=== PATIENT | female | born 1950 | race Caucasian/White ===

== ENCOUNTER 2023-02-15 10:44 | Emergency (ER) | payer OTHER ==
[2023-02-15 10:55] VITALS: BMI 24.4
[2023-02-15 12:02] LABS: BASO % 0.5 % (0-2.0); EOS % 2.2 % (0-4.5); HEMATOCRIT 31.7 % (32.4-45.2); HEMOGLOBIN 10.8 GM/dL (10.7-15.3); LYMPH % 24.9 % (8-40); MCH 30.8 pg (25.7-33.7); MCHC 34.1 g/dl (32.0-36.0); MEAN CELL VOLUME 90.6 fl (80-96); MEAN PLT VOLUME 9.6 fl (7.5-11.1); MONO % 6.6 % (3.8-10.2); NEUT % 65.8 % (42.8-82.8); PLATELET COUNT 252 10^3/uL (134-434); RBC 3.49 M/mm3 (3.60-5.2); RDW 14.1 % (11.6-15.6)
[2023-02-15 12:03] LABS: INR 1.07 (0.83-1.09); PROTHROMBIN TIME (PATIENT) 12.4 SEC (9.7-13.0)
[2023-02-15 12:19] LABS: ALBUMIN 3.2 g/dl (3.4-5.0); CALCIUM 10.3 mg/dL (8.5-10.1)
[2023-02-15 12:22] LABS: CREATININE 0.7 mg/dL (0.55-1.3)
[2023-02-15 12:24] LABS: BILIRUBIN,TOTAL 0.3 mg/dL (0.2-1); TOT PROT 6.7 g/dl (6.4-8.2)
[2023-02-15 12:27] LABS: BLOOD UREA NITROGEN 39.2 mg/dL (7-18)
[2023-02-15 17:41] VITALS: RESP 20
[2023-02-15 20:11] VITALS: BP 116/67; PULSE 90; TEMP 98.6
== END 2023-02-15 20:14 | disposition home or self-care (01) ==
LOC: JER 10:44
DX: R04.2 Hemoptysis (principal); J47.9 Bronchiectasis, uncomplicated; Z20.822 Contact with and (suspected) exposure to COVID-19
CPT/HCPCS: 0241U-QW; 36415; 71250-TC; 80053; 83880; 85025; 85610; 86850; 86900; 86901; 93005; 93010; 99282-25

== ENCOUNTER 2023-06-13 17:15 | Emergency (ER) | payer OTHER, BC ==
[2023-06-13 18:02] VITALS: PULSE 85; BMI 26.9
[2023-06-14 01:53] VITALS: BP 107/50; RESP 17; TEMP 97
== END 2023-06-14 02:58 | disposition home or self-care (01) ==
LOC: JER 17:15
DX: S09.90XA Unspecified injury of head, initial encounter (principal); C71.9 Malignant neoplasm of brain, unspecified; R51.9 Headache, unspecified; W22.8XXA Striking against or struck by other objects, initial encounter; Y93.89 Activity, other specified; Y92.092 Bedroom in other non-institutional residence as the place of occurrence of the external cause
CPT/HCPCS: 70450-TC; 72125-TC; 99284-25

== ENCOUNTER 2023-09-20 12:37 | Inpatient (IN) | payer OTHER, BC ==
[2023-09-20 13:27] LABS: BASO % 0.5 % (0-2.0); EOS % 0.5 % (0-4.5); HEMATOCRIT 34.8 % (32.4-45.2); HEMOGLOBIN 11.4 GM/dL (10.7-15.3); LYMPH % 16.9 % (8-40); MCH 29.4 pg (25.7-33.7); MCHC 32.7 g/dl (32.0-36.0); MONO % 6.8 % (3.8-10.2); NEUT % 75.3 % (42.8-82.8); PLATELET COUNT 353 10^3/uL (134-434); RBC 3.86 M/mm3 (3.60-5.2); RDW 14.6 % (11.6-15.6); WHITE BLOOD COUNT 11.7 K/mm3 (4.0-10.0)
[2023-09-20 13:38] LABS: INR 1.05 (0.83-1.09); PROTHROMBIN TIME (PATIENT) 12.2 SEC (9.7-13.0)
[2023-09-20 13:41] LABS: ACTIVATED PTT 26.8 SECONDS (25.2-36.5)
[2023-09-20 13:53] LABS: POTASSIUM 3.8 mmol/L (3.5-5.1)
[2023-09-20 13:56] LABS: ALBUMIN 3.2 g/dl (3.4-5.0); BLOOD UREA NITROGEN 51.1 mg/dL (7-18); CALCIUM 10.2 mg/dL (8.5-10.1)
[2023-09-20] MEDS ORDERED: SODIUM CHLORIDE 500 ML IV STA ×2 (13:56→16:30)
[2023-09-20] MEDS ORDERED: PANTOPRAZOLE SOD 40 MG SUSPENSION PACKET PO ONE (13:58)
[2023-09-20 13:59] LABS: CREATININE 0.8 mg/dL (0.55-1.3)
[2023-09-20 14:01] LABS: BILIRUBIN,TOTAL 0.3 mg/dL (0.2-1); TOT PROT 6.9 g/dl (6.4-8.2)
[2023-09-20 14:12] LABS: LACTIC ACID 2.4 mmol/L (0.4-2.0)
[2023-09-20] MEDS ORDERED: VANCOMYCIN 1,000 MG in DEXTROSE 5%-WATER - 250 ML IVPB ONE (14:16)
[2023-09-20] MEDS ORDERED: CEFEPIME HCL 1 GM VIAL (RESTRICTED TO ID) IVPB ONE (14:17)
[2023-09-20] MEDS ORDERED: SODIUM CHLORIDE 1,000 ML IV STA (14:19)
[2023-09-20] MEDS ORDERED: VANCOMYCIN 1 GRAM (PRE-DOCKED) 1,000 MG/250 ML BAG IVPB ONE (15:14)
[2023-09-20] MEDS ORDERED: CEFEPIME 1 GM/100 ML BAG IVPB ONE (15:14)
[2023-09-20 16:38] LABS: EPI CELLS 3 /uL (0-25.1); HYALINE CASTS 0 /uL (0-3.1); PH,URINE 8.5 (5.0-8.0); URINE APPEARANCE CLEAR; URINE BACTERIA 788 /uL (0-1359); URINE BILIRUBIN NEGATIVE (NEGATIVE); URINE COLOR YELLOW; URINE GLUCOSE (UA) NEGATIVE (NEGATIVE); URINE KETONE NEGATIVE (NEGATIVE); URINE LEUK ESTERASE NEGATIVE (NEGATIVE); URINE NITRITE NEGATIVE (NEGATIVE); URINE PROTEIN 1+ (NEGATIVE); URINE RBC 14 /uL (0-23.9); URINE UROBILINOGEN 0.2 mg/dL (0.2-1.0); URINE WBC 5 /uL (0-25.8)
[2023-09-20 17:15] LABS: VENOUS BASE EXCESS 6.2 mmol/L (-2-2); VENOUS O2 SATURATION 78.5 % (70-80); VENOUS PCO2 46.8 mmHg (38-52); VENOUS PH 7.441 (7.310-7.410)
[2023-09-20 17:17] LABS: BASO % 0.8 % (0-2.0); EOS % 0.8 % (0-4.5); HEMATOCRIT 28.7 % (32.4-45.2); HEMOGLOBIN 9.5 GM/dL (10.7-15.3); LYMPH % 23.4 % (8-40); MCH 29.9 pg (25.7-33.7); MCHC 33.2 g/dl (32.0-36.0); MEAN CELL VOLUME 90.2 fl (80-96); MONO % 4.9 % (3.8-10.2); NEUT % 70.1 % (42.8-82.8); PLATELET COUNT 305 10^3/uL (134-434); RBC 3.19 M/mm3 (3.60-5.2); RDW 14.4 % (11.6-15.6); WHITE BLOOD COUNT 10.9 K/mm3 (4.0-10.0)
[2023-09-20 19:41] VITALS: BMI 27.7
[2023-09-20] MEDS: PANTOPRAZOLE SODIUM 40 MG VIAL IVPUSH SCH (22:04)
[2023-09-20] MEDS: busPIRone HCL 5 MG TABLET GT SCH (22:10)
[2023-09-20] MEDS: ATORVASTATIN CA 20 MG TABLET (FP) GT SCH (22:15)
[2023-09-20] MEDS: CITALOPRAM HYDROBROMIDE 20 MG TABLET PO SCH (22:15)
[2023-09-20] MEDS: DEXTROSE 5%-LACTATED RINGERS 1,000 ML IV SCH (22:19)
[2023-09-20] MEDS: levETIRAcetam 500 MG/5 ML INJECTION VIAL IVPB SCH (22:20)
[2023-09-20] MEDS: INSULIN SLIDING SCALE (NOVOLOG) 1 VIAL SQ SCH (22:34)
[2023-09-21 02:08] LABS: HEMATOCRIT 32.7 % (32.4-45.2); HEMOGLOBIN 10.7 GM/dL (10.7-15.3); MCH 29.4 pg (25.7-33.7); MCHC 32.7 g/dl (32.0-36.0); MEAN CELL VOLUME 90.1 fl (80-96); MEAN PLT VOLUME 8.6 fl (7.5-11.1); PLATELET COUNT 329 10^3/uL (134-434); RBC 3.63 M/mm3 (3.60-5.2); RDW 14.8 % (11.6-15.6); WHITE BLOOD COUNT 17.9 K/mm3 (4.0-10.0)
[2023-09-21] MEDS: CITALOPRAM HYDROBROMIDE 20 MG TABLET PO SCH ×2 (05:49→14:09)
[2023-09-21] MEDS: INSULIN SLIDING SCALE (NOVOLOG) 1 VIAL SQ SCH ×4 (06:20→22:41)
[2023-09-21 07:05] LABS: BASO % 0.3 % (0-2.0); EOS % 0.8 % (0-4.5); HEMATOCRIT 30.6 % (32.4-45.2); HEMOGLOBIN 9.9 GM/dL (10.7-15.3); LYMPH % 6.2 % (8-40); MCH 29.9 pg (25.7-33.7); MCHC 32.5 g/dl (32.0-36.0); MEAN PLT VOLUME 9.1 fl (7.5-11.1); MONO % 4.4 % (3.8-10.2); NEUT % 88.3 % (42.8-82.8); PLATELET COUNT 296 10^3/uL (134-434); RBC 3.32 M/mm3 (3.60-5.2); RDW 14.6 % (11.6-15.6); WHITE BLOOD COUNT 15.6 K/mm3 (4.0-10.0)
[2023-09-21 07:17] LABS: POTASSIUM 3.4 mmol/L (3.5-5.1)
[2023-09-21 07:18] LABS: CALCIUM 9.5 mg/dL (8.5-10.1)
[2023-09-21 07:19] LABS: ALBUMIN 2.8 g/dl (3.4-5.0); BLOOD UREA NITROGEN 38.1 mg/dL (7-18); MAGNESIUM 2.2 mg/dL (1.8-2.4)
[2023-09-21 07:22] LABS: CREATININE 0.6 mg/dL (0.55-1.3); PHOSPHOROUS 2.8 mg/dL (2.5-4.9)
[2023-09-21 07:24] LABS: BILIRUBIN,TOTAL 0.5 mg/dL (0.2-1); TOT PROT 6.1 g/dl (6.4-8.2)
[2023-09-21] MEDS ORDERED: POTASSIUM CHLORIDE TABS 20 MEQ TABLET.ER (FP) PO ONE (07:45)
[2023-09-21] MEDS ORDERED: POTASSIUM CHLORIDE ORAL LIQUID 20 MEQ/15 ML PO ONE (09:19)
[2023-09-21] MEDS ORDERED: CEFTRIAXONE 1 GM in DEXTROSE 5%-WATER - 50 ML IVPB SCH (10:00)
[2023-09-21] MEDS: PANTOPRAZOLE SODIUM 40 MG VIAL IVPUSH SCH ×2 (10:36→21:56)
[2023-09-21] MEDS: levETIRAcetam 500 MG/5 ML INJECTION VIAL IVPB SCH ×2 (10:36→21:55)
[2023-09-21] MEDS: busPIRone HCL 5 MG TABLET GT SCH ×2 (10:37→21:55)
[2023-09-21] MEDS ORDERED: INSULIN (NOVOLOG) ASPART 100 UNITS/ML 10ML VIAL ONE (11:20)
[2023-09-21] MEDS ORDERED: ZINC OXIDE 20% TOPICAL OINTMENT 30 GM TUBE TP SCH (14:00)
[2023-09-21] MEDS ORDERED: CITALOPRAM HYDROBROMIDE 20 MG TABLET GT SCH (14:59)
[2023-09-21 16:17] LABS: HEMATOCRIT 30.9 % (32.4-45.2); HEMOGLOBIN 10.1 GM/dL (10.7-15.3); MCHC 32.8 g/dl (32.0-36.0); MEAN CELL VOLUME 91.4 fl (80-96); MEAN PLT VOLUME 9.4 fl (7.5-11.1); PLATELET COUNT 288 10^3/uL (134-434); RBC 3.38 M/mm3 (3.60-5.2); RDW 15.1 % (11.6-15.6); WHITE BLOOD COUNT 11.2 K/mm3 (4.0-10.0)
[2023-09-21] MEDS: DEXTROSE 5%-LACTATED RINGERS 1,000 ML IV SCH (20:05)
[2023-09-21] MEDS: ATORVASTATIN CA 20 MG TABLET (FP) GT SCH (21:55)
[2023-09-21] MEDS: ZINC OXIDE 20% TOPICAL OINTMENT 30 GM TUBE TP SCH (22:30)
[2023-09-22] MEDS: INSULIN SLIDING SCALE (NOVOLOG) 1 VIAL SQ SCH ×3 (06:05→23:39)
[2023-09-22 07:33] LABS: BASO % 0.7 % (0-2.0); EOS % 5.5 % (0-4.5); HEMATOCRIT 28.2 % (32.4-45.2); HEMOGLOBIN 9.1 GM/dL (10.7-15.3); MCH 29.9 pg (25.7-33.7); MCHC 32.3 g/dl (32.0-36.0); MEAN CELL VOLUME 92.7 fl (80-96); MEAN PLT VOLUME 9.2 fl (7.5-11.1); MONO % 7.2 % (3.8-10.2); NEUT % 59.6 % (42.8-82.8); PLATELET COUNT 249 10^3/uL (134-434); RBC 3.04 M/mm3 (3.60-5.2); RDW 14.1 % (11.6-15.6); WHITE BLOOD COUNT 6.8 K/mm3 (4.0-10.0)
[2023-09-22 08:50] LABS: POTASSIUM 3.4 mmol/L (3.5-5.1)
[2023-09-22 08:52] LABS: ALBUMIN 2.7 g/dl (3.4-5.0); CALCIUM 9.6 mg/dL (8.5-10.1); MAGNESIUM 1.6 mg/dL (1.8-2.4)
[2023-09-22 08:55] LABS: CREATININE 0.5 mg/dL (0.55-1.3)
[2023-09-22 08:57] LABS: BILIRUBIN,TOTAL 0.4 mg/dL (0.2-1); TOT PROT 5.8 g/dl (6.4-8.2)
[2023-09-22] MEDS: CITALOPRAM HYDROBROMIDE 20 MG TABLET GT SCH (09:56)
[2023-09-22] MEDS: busPIRone HCL 5 MG TABLET GT SCH ×2 (09:56→22:44)
[2023-09-22] MEDS: PANTOPRAZOLE SODIUM 40 MG VIAL IVPUSH SCH ×2 (09:56→22:43)
[2023-09-22] MEDS: levETIRAcetam 500 MG/5 ML INJECTION VIAL IVPB SCH ×2 (09:56→22:43)
[2023-09-22] MEDS: INSULIN (LEVEMIR) 100 UNITS/ML UNITS SQ SCH ×2 (09:57→23:41)
[2023-09-22] MEDS: ZINC OXIDE 20% TOPICAL OINTMENT 30 GM TUBE TP SCH ×2 (09:58→23:44)
[2023-09-22] MEDS ORDERED: MAGNESIUM SULF 50% (8.12 MEQ/2 ML-1 GM VIAL) IVPB ONE (12:30)
[2023-09-22] MEDS ORDERED: POTASSIUM CHLORIDE ORAL LIQUID 20 MEQ/15 ML PO ONE (12:42)
[2023-09-22] MEDS: INSULIN (NOVOLOG) ASPART 100 UNITS/ML 10ML VIAL SQ SCH ×2 (13:00→17:35)
[2023-09-22] MEDS ORDERED: POTASSIUM CHLORIDE ORAL LIQUID 20 MEQ/15 ML GT ONE (13:30)
[2023-09-22] MEDS: HEPARIN NA (PORCINE) 5,000 UNITS/ML 1ML VIAL SQ SCH (22:43)
[2023-09-22] MEDS: ATORVASTATIN CA 20 MG TABLET (FP) GT SCH (22:44)
[2023-09-22] MEDS: METOCLOPRAMIDE HCL INJECTION 10 MG/2 ML VIAL IVPB SCH (22:49)
[2023-09-23] MEDS: METOCLOPRAMIDE HCL INJECTION 10 MG/2 ML VIAL IVPB SCH ×3 (03:51→18:20)
[2023-09-23] MEDS ORDERED: INSULIN (NOVOLOG) ASPART 100 UNITS/ML 10ML VIAL ONE ×2 (06:24→06:32)
[2023-09-23] MEDS: INSULIN SLIDING SCALE (NOVOLOG) 1 VIAL SQ SCH ×2 (06:26→14:00)
[2023-09-23] MEDS: INSULIN (LEVEMIR) 100 UNITS/ML UNITS SQ SCH (06:27)
[2023-09-23 08:42] LABS: BASO % 0.7 % (0-2.0); EOS % 3.5 % (0-4.5); HEMATOCRIT 29.4 % (32.4-45.2); HEMOGLOBIN 9.5 GM/dL (10.7-15.3); LYMPH % 25.8 % (8-40); MCHC 32.3 g/dl (32.0-36.0); MEAN CELL VOLUME 92.9 fl (80-96); MONO % 6.6 % (3.8-10.2); NEUT % 63.4 % (42.8-82.8); RBC 3.16 M/mm3 (3.60-5.2); RDW 14.2 % (11.6-15.6); WHITE BLOOD COUNT 8.8 K/mm3 (4.0-10.0)
[2023-09-23 08:43] LABS: MEAN PLT VOLUME 9.7 fl (7.5-11.1); PLATELET COUNT 308 10^3/uL (134-434)
[2023-09-23 08:56] LABS: POTASSIUM 4.6 mmol/L (3.5-5.1)
[2023-09-23 09:07] LABS: ALBUMIN 2.8 g/dl (3.4-5.0); BLOOD UREA NITROGEN 17.8 mg/dL (7-18); CALCIUM 9.4 mg/dL (8.5-10.1); MAGNESIUM 1.9 mg/dL (1.8-2.4)
[2023-09-23 09:10] LABS: CREATININE 0.6 mg/dL (0.55-1.3); PHOSPHOROUS 2.6 mg/dL (2.5-4.9)
[2023-09-23 09:12] LABS: BILIRUBIN,TOTAL 0.6 mg/dL (0.2-1); TOT PROT 6.1 g/dl (6.4-8.2)
[2023-09-23] MEDS: CITALOPRAM HYDROBROMIDE 20 MG TABLET GT SCH (09:42)
[2023-09-23] MEDS: HEPARIN NA (PORCINE) 5,000 UNITS/ML 1ML VIAL SQ SCH (09:43)
[2023-09-23] MEDS: levETIRAcetam 500 MG/5 ML INJECTION VIAL IVPB SCH (09:43)
[2023-09-23] MEDS: PANTOPRAZOLE SODIUM 40 MG VIAL IVPUSH SCH (09:43)
[2023-09-23] MEDS: busPIRone HCL 5 MG TABLET GT SCH (09:43)
[2023-09-23] MEDS: ZINC OXIDE 20% TOPICAL OINTMENT 30 GM TUBE TP SCH (09:44)
[2023-09-23 23:09] VITALS: BP 110/60; PULSE 93; RESP 20; TEMP 99
== END 2023-09-23 22:40 | DRG 378 ==
LOC: JER 12:37 → JERBED 17:05 → J4W 18:47
PROVIDERS: ADMIT Internal Medicine; ATTEND Internal Medicine
DX: K92.2 Gastrointestinal hemorrhage, unspecified (principal); C79.51 Secondary malignant neoplasm of bone; J96.10 Chronic respiratory failure, unspecified whether with hypoxia or hypercapnia; I69.351 Hemiplegia and hemiparesis following cerebral infarction affecting right dominant side; K94.21 Gastrostomy hemorrhage; E11.9 Type 2 diabetes mellitus without complications; Z93.0 Tracheostomy status; E78.5 Hyperlipidemia, unspecified; G40.909 Epilepsy, unspecified, not intractable, without status epilepticus; I10 Essential (primary) hypertension; J44.9 Chronic obstructive pulmonary disease, unspecified; I95.89 Other hypotension; D64.9 Anemia, unspecified; Y83.8 Other surgical procedures as the cause of abnormal reaction of the patient, or of later complication, without mention of misadventure at the time of the procedure; Z79.4 Long term (current) use of insulin
CPT/HCPCS: 0241U-QW; 36415; 71045-TC-FY; 74018-TC-FY; 80053; 81003; 82272; 82728; 82803; 82962; 83540; 83550; 83605; 83615; 83735; 84100; 84484; 85025; 85027; 85045; 85610; 85730; 86850; 86900; 86901; 87040; 87086; 93005; 93010; 99285-25; J1644

== ENCOUNTER 2024-01-30 14:43 | Emergency (ER) | payer OTHER, BC ==
[2024-01-30 15:23] VITALS: RESP 16; BMI 26.5
[2024-01-30 16:00] VITALS: TEMP 99.8
[2024-01-30 16:35] LABS: EPI CELLS 21 /uL (0-25.1); HYALINE CASTS 6 /uL (0-3.1); PH,URINE 6.5 (5.0-8.0); URINE APPEARANCE TURBID; URINE BACTERIA 5 /uL (0-1359); URINE BILIRUBIN NEGATIVE (NEGATIVE); URINE COLOR DK YELLOW; URINE GLUCOSE (UA) NEGATIVE (NEGATIVE); URINE KETONE NEGATIVE (NEGATIVE); URINE LEUK ESTERASE NEGATIVE (NEGATIVE); URINE NITRITE NEGATIVE (NEGATIVE); URINE PROTEIN 1+ (NEGATIVE); URINE RBC 25 /uL (0-23.9); URINE WBC 14 /uL (0-25.8)
[2024-01-30 16:58] LABS: BASO % 0.3 % (0-2.0); EOS % 0.6 % (0-4.5); HEMATOCRIT 31.1 % (32.4-45.2); HEMOGLOBIN 10.4 GM/dL (10.7-15.3); LYMPH % 14.1 % (8-40); MCH 29.7 pg (25.7-33.7); MCHC 33.3 g/dl (32.0-36.0); MONO % 6.1 % (3.8-10.2); NEUT % 78.9 % (42.8-82.8); PLATELET COUNT 419 10^3/uL (134-434); RBC 3.49 M/mm3 (3.60-5.2); RDW 16.1 % (11.6-15.6); WHITE BLOOD COUNT 17.4 K/mm3 (4.0-10.0)
[2024-01-30 17:11] LABS: VENOUS BASE EXCESS 5.5 mmol/L (-2-2); VENOUS PCO2 52.5 mmHg (38-52); VENOUS PH 7.395 (7.310-7.410)
[2024-01-30 17:15] LABS: POTASSIUM 4.7 mmol/L (3.5-5.1)
[2024-01-30 17:17] LABS: BLOOD UREA NITROGEN 33.4 mg/dL (7-18); CALCIUM 10.4 mg/dL (8.5-10.1); MAGNESIUM 2.1 mg/dL (1.8-2.4)
[2024-01-30 17:18] LABS: ALBUMIN 2.8 g/dl (3.4-5.0)
[2024-01-30 17:21] LABS: CREATININE 0.6 mg/dL (0.55-1.3)
[2024-01-30 17:22] LABS: BILIRUBIN,TOTAL 0.3 mg/dL (0.2-1); TOT PROT 7.1 g/dl (6.4-8.2); URINE CRYSTALS PRESENT /hpf
[2024-01-30 18:45] VITALS: BP 122/78; PULSE 87
== END 2024-01-30 21:09 | disposition short-term general hospital (02) ==
LOC: JER 14:43
DX: R53.83 Other fatigue (principal); G93.89 Other specified disorders of brain; Z20.822 Contact with and (suspected) exposure to COVID-19
CPT/HCPCS: 0241U-QW; 70450-TC; 71045-TC-FY; 80053; 81003; 82550; 82803; 82962; 83605; 83735; 84484; 85025; 86850; 86900; 86901; 87040; 87086; 93005; 93010; 99285-25